=== PATIENT | male | born 1985 | race Hispanic/Latino ===

== ENCOUNTER 2023-06-28 17:19 | Emergency (ER) | payer SELFPAY ==
[2023-06-28] MEDS ORDERED: Boostrix 0.5 ML (Tdap) VIAL (>/=7 yrs of age) ONE (17:41)
[2023-06-28] MEDS ORDERED: CEFAZOLIN 2 GM VIAL ONE (17:44)
[2023-06-28] MEDS ORDERED: Sodium Chloride 0.9% 100 ML ONE (17:45)
[2023-06-28] MEDS ORDERED: Lidocaine 1% PF 5 ML VIAL ONE (18:03)
== END 2023-06-28 19:35 | disposition home or self-care (01) ==
LOC: ERS 17:19
DX: S61.412A Laceration without foreign body of left hand, initial encounter (principal); Z23 Encounter for immunization; W26.8XXA Contact with other sharp object(s), not elsewhere classified, initial encounter
CPT/HCPCS: 12002; 90471; 90715; 96365; J3490

== ENCOUNTER 2023-07-12 08:48 | Emergency (ER) | payer SELFPAY | END 2023-07-12 09:50 | disposition home or self-care (01) | LOC: ERS 08:48 | DX: S61.412D Laceration without foreign body of left hand, subsequent encounter (principal); W26.8XXD Contact with other sharp object(s), not elsewhere classified, subsequent encounter ==

== ENCOUNTER 2023-08-29 17:00 | Emergency (ER) | payer OTHER, SELFPAY | END 2023-08-29 17:50 | disposition home or self-care (01) | LOC: ERS 17:00 | DX: S00.83XA Contusion of other part of head, initial encounter (principal); V89.2XXA Person injured in unspecified motor-vehicle accident, traffic, initial encounter | CPT/HCPCS: 70450 ==